=== PATIENT | female | born 1950 | race American Indian/Alaskan Native ===

== ENCOUNTER 2020-01-30 10:23 | Outpatient (CLI) | payer MEDICARE ==
--- NOTE | 2020-01-30 11:23 | Ultrasound Report ---
US extremity nonvascular RT INDICATION / CLINICAL INFORMATION: RIGHT CHIU CONTUSION. COMPARISON: None available. FINDINGS: No mass or fluid collection is seen at the right chiu. No abnormal flow is seen. IMPRESSION: 1. No mass or fluid collection at the right chiu contusion. Signer Name: Eduard Loco MD Signed: 01/30/2020 11:18 AM Workstation Name: [id number]
== END 2020-01-30 10:24 | disposition home or self-care (01) ==
LOC: SPVWC 10:23
PROVIDERS: ATTEND Internal Medicine Endocrinology, Diabetes & Metabolism
DX: S80.11XA Contusion of right lower leg, initial encounter (principal); X58.XXXA Exposure to other specified factors, initial encounter; Y93.89 Activity, other specified; Y92.89 Other specified places as the place of occurrence of the external cause; Y99.8 Other external cause status